=== PATIENT | male | born 1975 | race Two or more races ===

== ENCOUNTER 2022-08-22 04:44 | Day surgery (SDC) | payer OTHER ==
[2022-08-21 08:39] VITALS: BMI 26.4
[2022-08-22 13:03] VITALS: TEMP 97.8
[2022-08-22 13:35] VITALS: BP 115/49; PULSE 52; RESP 18
== END 2022-08-22 13:35 | disposition home or self-care (01) ==
LOC: JASU-ENDO 04:44 → EDSEX 12:00 → JASU-ENDO 13:35
PROVIDERS: ATTEND Internal Medicine Gastroenterology
PROC: 0DJD8ZZ Inspection of Lower Intestinal Tract, Via Natural or Artificial Opening Endoscopic (ICD-10-PCS; principal; 2022-08-22 12:00)
DX: Z12.11 Encounter for screening for malignant neoplasm of colon (principal)